=== PATIENT | male | born 1965 | race Caucasian/White ===

== ENCOUNTER 2016-10-02 06:18 | Observation (INO) | payer SELFPAY ==
[~2016-10-02] VITALS: Ht 177.8 cm; Wt 85.0 kg
[2016-10-02] VITALS (7 sets, daily range): BP systolic 122–154; BP diastolic 73–105; PULSE 61–104; RESP 15–24; TEMP 97.9–99.4; O2SAT 95–100
[~2016-10-02 06:18] MED LIST: CIPR500T2 PO; METR-1 PO; Z.0.NO CURRENT MEDS
[2016-10-02] MEDS ORDERED: XANA2TAB2 PO (06:27)
[2016-10-02] MEDS ORDERED: NITROGLYCERIN 2% OINT 1 GM PACKET TOP ONE (06:45)
[2016-10-02] MEDS ORDERED: ASPIRIN 81 MG CHEW TAB PO ONE (06:45)
[2016-10-02] MEDS ORDERED: NITROGLYCERIN 0.4 MG SL 25 TABS/BTL SL ONE (06:45)
[2016-10-02] MEDS ORDERED: SODIUM CHLORIDE 0.9% FLUSH 10 ML FLUSH IVF PRN (06:45)
[2016-10-02] MEDS ORDERED: LORazepam 2 MG/ML VIAL IV PUSH ONE ×2 (07:00→08:30)
[2016-10-02] MEDS ORDERED: SODIUM CHLOR 0.9% 1000 ML INJ 1,000 ML IV ONE ×2 (07:00→08:30)
--- NOTE | 2016-10-02 07:03 | PD ---
HPI Chief Complaint: Chest Pain Time Seen by Provider: 06:27 Travel History International Travel<30 days: No Contact w/Intl Traveler<30days: No Traveled to known affect area: No History of Present Illness HPI The patient is a 51 year old male who presents to the [facility] emergency department with a history of chest tightness that he reports began around 3:30 AM this morning. The patient reports that he has not been able to sleep for the last 5 days, however he did replace fall asleep for 10 minutes and awoke with this chest pain that he describes as a tightness, palpitations, diaphoresis , and shortness of breath. He reports that the chest pain continued and therefore he decided to come to the emergency department. His history, located by running out of his Xanax 5 days ago. He reports that he was previously seeing Dr. Blul, however he was discharged from Dr. Bull practice reportedly because he does not have insurance. The patient reports that he has been on Xanax 2 mg by mouth 3 times a day for the last 6 years related to tremor , anxiety, and posttraumatic stress disorder. The patient arrives anxious, tremulous. He denies ever being off of this medication for any extended period time previously. He reports being nauseated, however he has not vomited. He denies having any diarrhea. He reports that he last moved his bowels 2-3 days ago. He reports that he has not been able to eat related to his withdrawal symptoms. The patient denies any recent fevers, cough, congestion, neck pain, abdominal pain, urinary symptoms, or other neurologic symptoms. [facility] Past Medical History Narrative Medical The patient's past medical history is significant for tremors, anxiety disorder , history of posttraumatic stress disorder. The patient has had an episode of diverticulitis in the past. 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 Surgical History: No Previous Surgery Other Surgery: Yes (ANAL TUMOR REMOVED CHILD.) Social History Alcohol Use: Yes (1-2 times per week) Tobacco Use: No Substance Use: No Allergies-Medications (Allergen,Severity, Reaction): Coded Allergies: No Known Allergies (Verified , 10/02/16) Reported Meds & Prescriptions Reported Meds & Active Scripts Active Flagyl (Metronidazole) 500 Mg Tab 500 Mg PO TID Ciprofloxacin Hcl 500 Mg Tab 500 Mg PO BID Reported Xanax (Alprazolam) 2 Mg Tab 2 Mg PO Q8H PRN No Current Meds (Miscellaneous Medication) [facility] Review of Systems Except as stated in HPI: all other systems reviewed are Neg General / Constitutional: No: Fever Eyes: No: Visual changes HENT: No: Headaches Cardiovascular: Positive: Chest Pain or Discomfort, Dyspnea on exertion Respiratory: Positive: Shortness of Breath Gastrointestinal: Positive: Nausea, Constipation, Changes in Bowel Habits, No : Vomiting, Diarrhea, Abdominal Pain, Hematemesis, Loss of Appetite Genitourinary: No: Dysuria Musculoskeletal: No: Pain Skin: No Rash Neurologic: No: Weakness Psychiatric: No: Depression Endocrine: No: Polydipsia Hematologic/Lymphatic: No: Easy Bruising Physical Exam Narrative General: The patient is a well-developed well-nourished male, anxious appearing on arrival, tremulous on examination, eyes are darting around the room, pressure speech noted. Head and Neck exam: Head is normocephalic atraumatic. Eyes: EOMI, pupils are equal round and reactive to light. Nose: Midline septum with pink mucous membranes Mouth: Dentition unremarkable. Moist mucus membranes. Posterior oropharynx is not erythematous. No tonsillar hypertrophy. Uvula midline. Airway patent. Neck: No palpable lymphadenopathy. No nuchal rigidity. No thyromegaly. Cardiovascular: Regular rate and rhythm without murmurs, gallops, or rubs. Lungs: Clear to auscultation bilaterally. No wheezes, rhonchi, or rales. Abdomen: Soft, without tenderness to palpation in all 4 quadrants of the abdomen. No guarding, rebound, or rigidity. Normal bowel sounds are audible. No tenderness on palpation of McBurney's point. Extremities: No clubbing, cyanosis, or edema. 2+ pulses in all 4 extremities. No calf tenderness on palpation. Back: No costovertebral angle tenderness to palpation. Neurologic Exam: Cranial nerves 2-12 were intact on exam. Strength is 5/5 in all 4 extremities. No sensory deficits noted. Tremulous on examination. No asterixis. Skin Exam: No rash noted. Intact skin that is warm and dry. Data Data Last Documented VS Vital Signs Date Time Temp Pulse Resp B/P Pulse Ox O2 Delivery O2 Flow Rate FiO2 10/02/16 06:19 97.9 104 20 154/105 100 Orders Electrocardiogram (10/02/16 06:45) B-Type Natriuretic Peptide (10/02/16 06:45) Ckmb (Isoenzyme) Profile (10/02/16 06:45) Complete Blood Count With Diff (10/02/16 06:45) Comprehensive Metabolic Panel (10/02/16 06:45) D-Dimer (10/02/16 06:45) Magnesium (Mg) (10/02/16 06:45) Prothrombin Time / Inr (Pt) (10/02/16 06:45) Act Partial Throm Time (Ptt) (10/02/16 06:45) Troponin I (10/02/16 06:45) Lipase (10/02/16 06:45) Chest, Single Ap (10/02/16 06:45) Ecg Monitoring (10/02/16 06:45) Bilateral Bp Monitoring (10/02/16 06:45) Iv Access Insert/Monitor (10/02/16 06:45) Oximetry (10/02/16 06:45) Oxygen Administration (10/02/16 06:45) Aspirin Chew (Aspirin Chew) (10/02/16 06:45) Nitroglycerin 2% Oint (Nitroglycerin 2% (10/02/16 06:45) Sodium Chloride 0.9% Flush (Ns Flush) (10/02/16 06:45) Nitroglycerin Sl (Nitrostat Sl) (10/02/16 06:45) Drug Screen, Random Urine (10/02/16 06:49) Alcohol (Ethanol) (10/02/16 06:49) Sodium Chlor 0.9% 1000 Ml Inj (Ns 1000 M (10/02/16 07:00) Lorazepam Inj (Ativan Inj) (10/02/16 07:00) MDM Medical Decision Making Medical Screen Exam Complete: Yes Emergency Medical Condition: Yes Medical Record Reviewed: Yes Differential Diagnosis Acute coronary syndrome related to Xanax withdrawal, versus benzodiazepine withdrawal syndrome, versus anxiety disorder Narrative Course During the course of the patients emergency department visit, the patients history, examination, and differential diagnosis were reviewed with the patient. The patient had IV access obtained and blood work sent for analysis. The patient was placed on a awake overnight monitor with oximetry and blood pressure monitoring. An EKG was ordered. The patient was initially provided the patient was given normal saline 1 L IV fluid bolus, Ativan 1 mg IV. The patient will be given aspirin 160 mg by mouth 1, nitroglycerin sublingual 1, nitroglycerin 1 inch the chest wall. The patients laboratory studies and radiologic studies are pending. The patient's case will be checked out to the oncoming emergency physician to disposition based on the conclusion of the patient's workup. Diagnosis Primary Impression: Chest pain, rule out acute myocardial infarction Additional Impression: Benzodiazepine withdrawal Qualified Code: F13.239 - Benzodiazepine withdrawal, with unspecified complication Yari Saenz MD Oct 02, 2016 07:03
--- NOTE | 2016-10-02 07:34 | PD ---
Data Data Last Documented VS Vital Signs Date Time Temp Pulse Resp B/P Pulse Ox O2 Delivery O2 Flow Rate FiO2 10/02/16 09:37 97 Nasal Cannula 2 10/02/16 09:03 18 10/02/16 08:49 71 126/84 10/02/16 06:19 97.9 Orders Electrocardiogram (10/02/16 06:45) B-Type Natriuretic Peptide (10/02/16 06:45) Ckmb (Isoenzyme) Profile (10/02/16 06:45) Complete Blood Count With Diff (10/02/16 06:45) Comprehensive Metabolic Panel (10/02/16 06:45) D-Dimer (10/02/16 06:45) Magnesium (Mg) (10/02/16 06:45) Prothrombin Time / Inr (Pt) (10/02/16 06:45) Act Partial Throm Time (Ptt) (10/02/16 06:45) Troponin I (10/02/16 06:45) Lipase (10/02/16 06:45) Chest, Single Ap (10/02/16 06:45) Ecg Monitoring (10/02/16 06:45) Bilateral Bp Monitoring (10/02/16 06:45) Iv Access Insert/Monitor (10/02/16 06:45) Oximetry (10/02/16 06:45) Oxygen Administration (10/02/16 06:45) Aspirin Chew (Aspirin Chew) (10/02/16 06:45) Nitroglycerin 2% Oint (Nitroglycerin 2% (10/02/16 06:45) Sodium Chloride 0.9% Flush (Ns Flush) (10/02/16 06:45) Nitroglycerin Sl (Nitrostat Sl) (10/02/16 06:45) Drug Screen, Random Urine (10/02/16 06:49) Sodium Chlor 0.9% 1000 Ml Inj (Ns 1000 M (10/02/16 07:00) Lorazepam Inj (Ativan Inj) (10/02/16 07:00) Alcohol (Ethanol) (10/02/16 07:09) CKMB (10/02/16 07:09) CKMB% (10/02/16 07:09) Lactic Acid (10/02/16 08:01) Lorazepam Inj (Ativan Inj) (10/02/16 08:30) Sodium Chlor 0.9% 1000 Ml Inj (Ns 1000 M (10/02/16 08:30) Lactic Acid (10/02/16 09:24) Troponin I (10/02/16 09:24) Diet Heart Healthy (10/02/16 Lunch) Vital Signs (Adult) [id number] (10/02/16 11:08) Troponin I (10/02/16 16:00) Admit Order (Ed Use Only) (10/02/16 ) Labs Laboratory Tests Test 10/02/16 10/02/16 07:09 10:18 White Blood Count 11.9 TH/MM3 Red Blood Count 5.14 MIL/MM3 Hemoglobin 16.6 GM/DL Hematocrit 47.0 % Mean Corpuscular Volume 91.4 FL Mean Corpuscular Hemoglobin 32.3 PG Mean Corpuscular Hemoglobin 35.4 % Concent Red Cell Distribution Width 13.0 % Platelet Count 285 TH/MM3 Mean Platelet Volume 8.0 FL Neutrophils (%) (Auto) 81.4 % Lymphocytes (%) (Auto) 12.1 % Monocytes (%) (Auto) 5.5 % Eosinophils (%) (Auto) 0.2 % Basophils (%) (Auto) 0.8 % Neutrophils # (Auto) 9.7 TH/MM3 Lymphocytes # (Auto) 1.4 TH/MM3 Monocytes # (Auto) 0.7 TH/MM3 Eosinophils # (Auto) 0.0 TH/MM3 Basophils # (Auto) 0.1 TH/MM3 CBC Comment DIFF FINAL Differential Comment Prothrombin Time 11.3 SEC Prothromb Time International 1.0 RATIO Ratio Activated Partial 22.5 SEC Thromboplast Time D-Dimer Quantitative (PE/DVT) 0.20 MG/L FEU Sodium Level 141 MEQ/L Potassium Level 3.9 MEQ/L Chloride Level 105 MEQ/L Carbon Dioxide Level 21.8 MEQ/L Anion Gap 14 MEQ/L Blood Urea Nitrogen 8 MG/DL Creatinine 1.28 MG/DL Estimat Glomerular Filtration 59 ML/MIN Rate Random Glucose 138 MG/DL Lactic Acid Level 4.9 mmol/L 1.7 mmol/L Calcium Level 9.5 MG/DL Magnesium Level 1.9 MG/DL Total Bilirubin 1.9 MG/DL Aspartate Amino Transf 62 U/L (AST/SGOT) Alanine Aminotransferase 42 U/L (ALT/SGPT) Alkaline Phosphatase 73 U/L Total Creatine Kinase 879 U/L Creatine Kinase MB 1.1 NG/ML Creatine Kinase MB % 0.1 % Troponin I LESS THAN 0.02 LESS THAN 0.02 NG/ML NG/ML B-Type Natriuretic Peptide 37 PG/ML Total Protein 8.4 GM/DL Albumin 4.7 GM/DL Lipase 86 U/L Ethyl Alcohol Level LESS THAN 3 MG/DL MDM Supervised Visit with MARLENE: No Interpretation(s) EKG shows sinus rhythm with a normal axis and normal R-wave progression. Possible LVH. No concerning ST segment changes. Intervals within normal limits. This borderline EKG. Narrative Course Patient care assumed from Dr. Saenz at 07 , this is a 51-year-old male presented to the emergency department with withdrawals from Xanax for the past day and a half. According to the patient he usually takes 2 mg of Xanax 3 times a day and was suddenly cut off 5 days ago. Patient certainly is tremulous on arrival but has no delirium and no fever. He stated that he then started having some chest pain left side of his chest which was accompanied with some shortness of breath. Patient's initial EKG and troponin were negative , his lactic acid is elevated to 4.9, the patient was given a total of 2 L of fluid in the emergency department had a milligram of Ativan prior to initiation of my care and I ordered an additional milligram of Ativan for him. His second lactic acid is less than 2, second troponin is negative. Patient was discussed with Dr. Edwards for observation for chest pain and benzodiazepine withdrawal. Diagnosis Primary Impression: Chest pain, rule out acute myocardial infarction Additional Impression: Benzodiazepine withdrawal Qualified Code: F13.239 - Benzodiazepine withdrawal, with unspecified complication Admitting Information Admitting Physician Requests: Observation Condition: Stable Jelani Rivera MD Oct 02, 2016 07:34
[2016-10-02 07:36] LABS: AUTOMATED NEUTROPHIL # 9.7 TH/MM3 (1.8-7.7); BASOPHIL # 0.1 TH/MM3 (0-0.2); BASOPHIL % 0.8 % (0.0-2.0); EOSINOPHIL % 0.2 % (0.0-4.0); HEMO FLAGS DIFF FINAL; LYMPH % 12.1 % (9.0-44.0); LYMPHOCYTE # 1.4 TH/MM3 (1.0-4.8); MEAN CELL VOLUME 91.4 FL (80.0-100.0); MEAN CORPUSCULAR HEMOGLOBIN 32.3 PG (27.0-34.0); MEAN CORPUSCULAR HGB CONC 35.4 % (32.0-36.0); MONO % 5.5 % (0.0-8.0); NEUT % 81.4 % (16.0-70.0); PLATELET COUNT 285 TH/MM3 (150-450); RED BLOOD COUNT 5.14 MIL/MM3 (4.50-5.90); WHITE BLOOD COUNT 11.9 TH/MM3 (4.0-11.0)
--- NOTE | 2016-10-02 07:38 | RADRPT ---
EXAM DATE/TIME: 10/02/2016 07:30 [place] COMPARISON: No previous studies available for comparison. INDICATIONS : Chest pain. MEDICAL HISTORY : None. SURGICAL HISTORY : None. ENCOUNTER: Initial ACUITY: 1 day PAIN SCORE: 9/10 LOCATION: Bilateral chest FINDINGS: A single view of the chest demonstrates the lungs to be symmetrically aerated without evidence of mas s, infiltrate or effusion. The cardiomediastinal contours are unremarkable. Osseous structures are intact. CONCLUSION: 1. No acute cardiopulmonary disease. Dane Monsalve MD on October 02, 2016 at 7:34 Board Certified Radiologist. This report was verified electronically.
[2016-10-02 07:50] LABS: APTT (PATIENT) 22.5 SEC (24.3-30.1); PROTHROMBIN TIME - PATIENT 11.3 SEC (9.8-11.6)
[2016-10-02 07:53] LABS: ALKALINE PHOSPHATASE 73 U/L (45-117); CREATINE KINASE 879 U/L (39-308); TOTAL BILIRUBIN ADULT 1.9 MG/DL (0.2-1.0)
[2016-10-02 08:07] LABS: ALT (GPT) 42 U/L (12-78); ANION GAP 14 MEQ/L (5-15); AST (GOT) 62 U/L (15-37); BICARBONATE 21.8 MEQ/L (21.0-32.0); BLOOD UREA NITROGEN 8 MG/DL (7-18); CHLORIDE 105 MEQ/L (98-107); CKMB 1.1 NG/ML (0.5-3.6); GLOMERULAR FILTRATION RATE 59 ML/MIN (>89); MAGNESIUM 1.9 MG/DL (1.5-2.5); POTASSIUM 3.9 MEQ/L (3.5-5.1); SODIUM (NA) 141 MEQ/L (136-145)
[2016-10-02] MEDS ORDERED: ALPRAZolam 1 MG TAB PO PRN (11:45)
--- NOTE | 2016-10-02 11:57 | HHI.HP ---
[facility] Service [facility] ([place], [place])ists Primary Care Physician No Primary Care Physician Admission Diagnosis Chest pain, Moderate Benzodiazepine withdrawal. Diagnoses: (1) Benzodiazepine withdrawal Diagnosis: Principal (2) Chest pain Diagnosis: Principal Chief Complaint: ' I'm shaking'. Travel History International Travel<30 Days: No Contact w/Intl Traveler <30 Da: No Traveled to Known Affected Are: No History of Present Illness patient is a 51 y/o male with history of anxiety and tremors who's been on Xanax for the past five years presented to ER with chest pain, tremors and feeling anxious. he says that he stopped taking his Xanax five days ago. he says that he ran out of his medication but he also wanted to quit taking it. since then he's been having worsening tremors,anxiety and chest pain. the chest pain localized to mid chest with no radiation. he had some sob but with no nausea or vomiting. after he received a couple of dose of Ativan in ER he felt slightly better although still with some tremors and anxiety. he says that ' he didn't this would happen when he stopped taking his xanax'. Review of Systems Constitutional: DENIES: Fever, Weight loss, Chills, Night Sweats Eyes: DENIES: Blurred vision, Diplopia, Vision loss, Double Vision Ears, nose, mouth, throat: DENIES: Tinnitus, Vertigo, Throat pain, Epistaxis Respiratory: COMPLAINS OF: Shortness of breath, DENIES: Apneas, Cough, Snoring , Wheezing, Hemoptysis, Sputum production Cardiovascular: COMPLAINS OF: Chest pain, DENIES: Palpitations, Syncope, Dyspnea on Exertion, PND, Lower Extremity Edema, Orthopnea, Claudication Gastrointestinal: DENIES: Abdominal pain, Black stools, Bloody stools, Constipation, Diarrhea, Nausea, Vomiting, Difficulty Swallowing, Anorexia Genitourinary: DENIES: Urinary frequency, Urgency, Hematuria, Dysuria Musculoskeletal: DENIES: Joint pain, Muscle aches, Stiffness, Joint Swelling Integumentary: DENIES: Rash Neurologic: COMPLAINS OF: Tremor, DENIES: Abnormal gait, Headache, Localized weakness, Paresthesias, Seizures, Speech Problems, Poor Balance Psychiatric: COMPLAINS OF: Anxiety, Agitation, DENIES: Confusion, Mood changes , Depression, Hallucinations, Suicidal Ideation, Homicidal Ideation, Delusions Past Family Social History Past Medical History anxiety Past Surgical History none reported. Reported Medications Xanax Allergies: Coded Allergies: No Known Allergies (Verified , 10/02/16) Active Ordered Medications Current Medications Aspirin (Aspirin Chew) 162 mg ONCE ONCE PO Last administered on 10/02/16 07: 49; Start 10/02/16 at 06:45; Stop 10/02/16 at 06:47; Status DC Nitroglycerin (Nitroglycerin 2% Oint) 1 inch ONCE ONCE TOP Last administered on 10/02/16 07:49; Start 10/02/16 at 06:45; Stop 10/02/16 at 06:47; Status DC Sodium Chloride (NS Flush) 2 ml UNSCH PRN IVF FLUSH AFTER USING IV ACCESS Last administered on 10/02/16 07:50; Start 10/02/16 at 06:45 Nitroglycerin 0.4 mg 0.4 mg ONCE ONCE SL Last administered on 10/02/16 08:58 ; Start 10/02/16 at 06:45; Stop 10/02/16 at 06:47; Status DC Sodium Chloride (NS 1000 ml Inj) 1,000 ml @ 1,000 mls/hr Q1H ONCE IV Last administered on 10/02/16 07:50; Start 10/02/16 at 07:00; Stop 10/02/16 at 07:59 ; Status DC Lorazepam (Ativan Inj) 1 mg ONCE ONCE IV PUSH Last administered on 10/02/16 07:50; Start 10/02/16 at 07:00; Stop 10/02/16 at 07:01; Status DC Lorazepam 1 mg 1 mg ONCE ONCE IV PUSH Last administered on 10/02/16 08:58; Start 10/02/16 at 08:30; Stop 10/02/16 at 08:34; Status DC Sodium Chloride (NS 1000 ml Inj) 1,000 ml @ 999 mls/hr BOLUS ONCE IV Last administered on 10/02/16 08:58; Start 10/02/16 at 08:30; Stop 10/02/16 at 09:30 ; Status DC Family History CAD in parents. Social History quit smoking a month ago. drinks twice weekly- no illicit drug abuse. Physical Exam Vital Signs Vital Signs Date Time Temp Pulse Resp B/P Pulse Ox O2 Delivery O2 Flow Rate FiO2 10/02/16 09:37 97 Nasal Cannula 2 10/02/16 09:03 18 10/02/16 08:49 71 24 126/84 97 Nasal Cannula 2 10/02/16 08:49 68 24 97 Nasal Cannula 2 10/02/16 06:19 97.9 104 20 154/105 100 Physical Exam GENERAL: looks somewhat anxious but in no acute distress. SKIN: No rashes, ecchymoses or lesions. Cool and dry. HEAD: Atraumatic. Normocephalic. No temporal or scalp tenderness. EYES: Pupils equal round and reactive. Extraocular motions intact. No scleral icterus. No injection or drainage. ENT: Nose without bleeding, purulent drainage or septal hematoma. Throat without erythema, tonsillar hypertrophy or exudate. Uvula midline. Airway patent. NECK: Trachea midline. No JVD or lymphadenopathy. Supple, nontender, no meningeal signs. CARDIOVASCULAR: Regular rate and rhythm without murmurs, gallops, or rubs. - chest is tender to touch. RESPIRATORY: Clear to auscultation. Breath sounds equal bilaterally. No wheezes , rales, or rhonchi. GASTROINTESTINAL: Abdomen soft, non-tender, nondistended. No hepato-splenomegaly , or palpable masses. No guarding. MUSCULOSKELETAL: Extremities without clubbing, cyanosis, or edema. No joint tenderness, effusion, or edema noted. No calf tenderness. Negative Homans sign bilaterally. NEUROLOGICAL: Awake and alert. Cranial nerves II through XII intact. Motor and sensory grossly within normal limits. Five out of 5 muscle strength in all muscle groups. Normal speech. Laboratory Laboratory Tests Test 10/02/16 10/02/16 07:09 10:18 White Blood Count 11.9 Red Blood Count 5.14 Hemoglobin 16.6 Hematocrit 47.0 Mean Corpuscular Volume 91.4 Mean Corpuscular Hemoglobin 32.3 Mean Corpuscular Hemoglobin 35.4 Concent Red Cell Distribution Width 13.0 Platelet Count 285 Mean Platelet Volume 8.0 Neutrophils (%) (Auto) 81.4 Lymphocytes (%) (Auto) 12.1 Monocytes (%) (Auto) 5.5 Eosinophils (%) (Auto) 0.2 Basophils (%) (Auto) 0.8 Neutrophils # (Auto) 9.7 Lymphocytes # (Auto) 1.4 Monocytes # (Auto) 0.7 Eosinophils # (Auto) 0.0 Basophils # (Auto) 0.1 CBC Comment DIFF FINAL Differential Comment Prothrombin Time 11.3 Prothromb Time International 1.0 Ratio Activated Partial 22.5 Thromboplast Time D-Dimer Quantitative (PE/DVT) 0.20 Sodium Level 141 Potassium Level 3.9 Chloride Level 105 Carbon Dioxide Level 21.8 Anion Gap 14 Blood Urea Nitrogen 8 Creatinine 1.28 Estimat Glomerular Filtration 59 Rate Random Glucose 138 Lactic Acid Level 4.9 1.7 Calcium Level 9.5 Magnesium Level 1.9 Total Bilirubin 1.9 Aspartate Amino Transf 62 (AST/SGOT) Alanine Aminotransferase 42 (ALT/SGPT) Alkaline Phosphatase 73 Total Creatine Kinase 879 Creatine Kinase MB 1.1 Creatine Kinase MB % 0.1 Troponin I LESS THAN 0.02 LESS THAN 0.02 B-Type Natriuretic Peptide 37 Total Protein 8.4 Albumin 4.7 Lipase 86 Ethyl Alcohol Level LESS THAN 3 Result Diagram: 10/02/16 0709 10/02/1609 Imaging Last Impressions Chest X-Ray 10/02/16 0645 Signed Impressions: Service Date/Time: Sunday, October 02, 2016 07:30 - CONCLUSION: 1. No acute cardiopulmonary disease. Dane Monsalve MD EKG; sinus rhythm with no acute ST-T changes Assessment and Plan Assessment and Plan A/P - benzodiazepine withdrawal received IV Ativan in ER- will resume his home dose Xanax and keep on Ativan prn- continue to monitor -chest pain- likely due to benzo withdrawal/ anxiety received a dose of aspirin in ER- first EKG and troponin negative- will repeat the cardiac enzymes- -mild rhabdomyolysis- start IV fluid and repeat CPK in am -DVT prophylaxis with SCD's Discussed Condition With ER physician and the patient. Problem Qualifiers (1) Benzodiazepine withdrawal: Qualified Code: F13.239 - Benzodiazepine withdrawal, with unspecified complication (2) Chest pain: Qualified Code: R07.9 - Chest pain, unspecified type Linda Zuniga MD Oct 02, 2016 11:57
[2016-10-02] MEDS ORDERED: ACETAMINOPHEN 325 MG TAB PO PRN (12:00)
[2016-10-02] MEDS ORDERED: ONDANSETRON HCL 4 MG/2 ML VIAL IV PUSH PRN (12:00)
[2016-10-02] MEDS: SODIUM CHLOR 0.9% 1000 ML INJ 1,000 ML IV SCH ×2 (12:38→21:19)
[2016-10-02] MEDS: ALPRAZolam 1 MG TAB PO SCH ×2 (12:39→21:19)
[2016-10-02] MEDS ORDERED: LORazepam 2 MG/ML VIAL IV PUSH PRN (14:45)
[2016-10-02 16:33] LABS: AMPHETAMINE, URINE NEG (NEG); BARBITURATES, URINE NEG (NEG); COCAINE, URINE NEG (NEG)
--- NOTE | 2016-10-02 23:00 | EKG ---
Date Performed: 10/02/2016 Time Performed: 07:04:47 PTAGE: 51 years EKG: Sinus rhythm MODERATE VOLTAGE CRITERIA FOR LVH, CONSIDER NORMAL VARIANT BORDERLINE ECG NO PREVIOUS TRACING DOCTOR: Priscilla Borges Interpretating Date/Time 10/02/2016 22:58:38
[2016-10-03] VITALS: BP 137/84; PULSE 70; RESP 20; TEMP 98.8; O2SAT 98
[2016-10-03 04:00] VITALS: BP 146/69; PULSE 62; RESP 20; TEMP 98.1; O2SAT 96
[2016-10-03] MEDS: ALPRAZolam 1 MG TAB PO SCH ×2 (04:50→11:53)
[2016-10-03 07:57] VITALS: BP 114/80; PULSE 56; RESP 14; TEMP 98.8; O2SAT 95
[2016-10-03 08:40] LABS: ALKALINE PHOSPHATASE 54 U/L (45-117); ALT (GPT) 26 U/L (12-78); ANION GAP 8 MEQ/L (5-15); AST (GOT) 30 U/L (15-37); BICARBONATE 23.3 MEQ/L (21.0-32.0); BLOOD UREA NITROGEN 12 MG/DL (7-18); CHLORIDE 107 MEQ/L (98-107); CREATINE KINASE 326 U/L (39-308); GLOMERULAR FILTRATION RATE 96 ML/MIN (>89); POTASSIUM 3.6 MEQ/L (3.5-5.1); SODIUM (NA) 138 MEQ/L (136-145); TOTAL BILIRUBIN ADULT 1.6 MG/DL (0.2-1.0)
[2016-10-03 09:09] LABS: CKMB 1.3 NG/ML (0.5-3.6)
[2016-10-03 09:32] LABS: AUTOMATED NEUTROPHIL # 7.1 TH/MM3 (1.8-7.7); BASOPHIL % 0.4 % (0.0-2.0); EOSINOPHIL # 0.1 TH/MM3 (0-0.4); EOSINOPHIL % 1.1 % (0.0-4.0); HEMATOCRIT 40.5 % (39.0-51.0); HEMO FLAGS DIFF FINAL; LYMPH % 18.8 % (9.0-44.0); LYMPHOCYTE # 1.8 TH/MM3 (1.0-4.8); MEAN CELL VOLUME 93.7 FL (80.0-100.0); MEAN CORPUSCULAR HEMOGLOBIN 31.8 PG (27.0-34.0); MEAN CORPUSCULAR HGB CONC 33.9 % (32.0-36.0); MONO % 6.8 % (0.0-8.0); NEUT % 72.9 % (16.0-70.0); PLATELET COUNT 191 TH/MM3 (150-450); RED BLOOD COUNT 4.33 MIL/MM3 (4.50-5.90); RED CELL DISTRIBUTION WIDTH 13.1 % (11.6-17.2); WHITE BLOOD COUNT 9.8 TH/MM3 (4.0-11.0)
[2016-10-03 11:20] VITALS: BP 113/72; PULSE 69; RESP 18; TEMP 98.7; O2SAT 96
[2016-10-03] MEDS: SODIUM CHLOR 0.9% 1000 ML INJ 1,000 ML IV SCH (11:54)
[2016-10-03] MEDS ORDERED: REGADENOSON INJ 0.4 MG/5 ML SYR ONE (13:46)
--- NOTE | 2016-10-03 15:04 | HHI.PR ---
Subjective Remarks Follow up for chest pain and benzodiazepine withdrawal. The patient is seen in nuclear medicine after completing stress test. He denies any further episodes of chest pain. Denies any shortness of breath or palpitations. He has been able to tolerate breakfast this morning, denies any nausea/vomiting/diarrhea. He states he has tremors and anxiety at baseline and has been on Xanax 2mg tid for 6 years for this. He states he was seeing PCP Dr. Bull however he lost insurance so she dropped him from her service. He states he has called to get established with new PCP Dr. Cordova however he does not have any new patient openings for another 6 weeks. The patient states he doesn't want to cut back on Xanax at this time because he doesn't want to go through withdrawal again. Currently he feels much better after receiving IV ativan and starting back on his Xanax. Explained to him we would only be able to provide short course of Xanax but he will need to find PCP/psychiatry follow up perla. Objective Vitals Vital Signs Date Time Temp Pulse Resp B/P Pulse Ox O2 Delivery O2 Flow Rate FiO2 10/03/16 11:20 98.7 69 18 113/72 96 10/03/16 07:57 98.8 56 14 114/80 95 10/03/16 04:00 98.1 62 20 146/69 96 10/03/16 00:00 98.8 70 20 137/84 98 10/02/16 21:17 99.0 68 20 122/80 98 10/02/16 15:17 99.0 80 16 153/98 97 I/O 10/02/16 10/02/16 10/02/16 10/03/16 10/03/16 10/03/16 07:00 15:00 23:00 07:00 15:00 23:00 Intake Total 220 ml 800 ml Output Total 550 ml 450 ml Balance -330 ml 350 ml Intake Oral 220 ml IV Total 800 ml Output Urine Total 550 ml 450 ml # Voids 1 # Bowel Movements 1 Result Diagram: 10/03/16 0625 10/03/16 0625 Imaging Last Impressions Myocardial Perfusion Scan Nuc Med 10/03/16 0000 Signed Impressions: Service Date/Time: September 13:10 - CONCLUSION: Small size, mild severity periapical perfusion abnormality. No ischemia. RISK CATEGORY: Low (<1%% Annual Mortality Rate) Miguel Cedeño MD Chest X-Ray 10/02/16 0645 Signed Impressions: Service Date/Time: Sunday, October 02, 2016 07:30 - CONCLUSION: 1. No acute cardiopulmonary disease. Dane Monsalve MD Objective Remarks GENERAL: Well-nourished, well-developed middle aged male patient in [facility]. SKIN: Warm and dry. No rash. HEENT: Normocephalic. Atraumatic.Pupils equal and round. Mucous membranes pink and moist. NECK: Supple. Trachea midline. CARDIOVASCULAR: Regular rate and rhythm. S1, S2 noted. No murmur appreciated. RESPIRATORY: No accessory muscle use. Clear to auscultation. Breath sounds equal bilaterally. GASTROINTESTINAL: Abdomen soft, non-tender, nondistended. Normoactive bowel sounds x4. MUSCULOSKELETAL: No obvious deformities. Extremities without clubbing, cyanosis , or edema. NEUROLOGICAL: Awake and alert. No obvious cranial nerve deficits. Motor grossly within normal limits. Normal speech. PSYCHIATRIC: Appropriate mood and affect; insight and judgment normal. Medications and IVs Current Medications Medications (Trade) Dose Ordered Sig/Miranda Route Start Time Stop Time Status Last Admin Sodium Chloride 2 ml 2 ml UNSCH PRN IVF 10/02/16 06:45 10/02/16 07:50 (NS 1000 ml Inj) 1,000 ml @ 100 mls/hr Q10H IV 10/02/16 12:00 10/03/16 11:54 (Zofran Inj) 4 mg Q8HR PRN IV PUSH 10/02/16 12:00 (Tylenol) 650 mg Q4H PRN PO 10/02/16 12:00 (Xanax) 2 mg Q8H PO 10/02/16 12:00 10/03/16 11:53 (Ativan Inj) 1 mg Q4H PRN IV PUSH 10/02/16 14:45 A/P Problem List: (1) Benzodiazepine withdrawal ICD Code: F13.239 Status: Acute (2) Chest pain ICD Code: R07.9 Status: Acute Assessment and Plan 51-year-old male with history of anxiety and tremors on Xanax for 6+ years, presents to the ER with points of chest pain, tremors, severe anxiety after he ran out of his Xanax five days ago. Benzodiazepine withdrawal: Patient has been on Xanax 2 mg tid for many years, however lost insurance, therefore has not been able to follow-up with his PCP Dr. Bull. S/p IV Ativan in the ER with moderate improvement. Restarted patient's Xanax 2mg tid. Patient much improved today. Will need prescription for Xanax at discharge. Chest Pain: strongly suspect secondary to anxiety and benzo withdrawal. ACS ruled out with negative serial cardiac enzymes x3 and EKG without acute ischemic changes. Nuclear Stress Test shows small size mild severity periapical perfusion abnormality; no ischemia; low risk. Continue aspirin. Lactic Acidosis: Lactate initially 4.9, suspect secondary to benzo withdrawal with nausea/vomiting. Given IVF boluses, repeat lactate 1.7. Resolved. Mild Rhabdomyolysis: CPK 879, given IVF, repeat CPK 326. Improved. DVT Prophylaxis: SCDs Discharge Planning Discharge patient to home Condition on discharge: Improved Heart Healthy Diet as tolerated Ad Barbara activity Rx written: Aspirin 81mg daily, Xanax 2mg tid Follow-up with primary care physician within 1 week Problem Qualifiers (1) Benzodiazepine withdrawal: Qualified Code: F13.239 - Benzodiazepine withdrawal, with unspecified complication (2) Chest pain: Qualified Code: R07.9 - Chest pain, unspecified type Araseli Lopez PA-C Oct 03, 2016 3:04 pm
--- NOTE | 2016-10-03 15:45 | RADRPT ---
EXAM DATE/TIME: 10/03/2016 13:10 [place] COMPARISON: No previous studies available for comparison. INDICATIONS : Mid chest pain. Angina. DOSE: 38.2 mCi Tc99m Myoview at stress. 8.1 mCi Tc99m Myoview at rest. 0.4 mg Lexiscan STRESS SYMPTOMS: None noted. EJECTION FRACTION: 50% MEDICAL HISTORY : Asthma. SURGICAL HISTORY : Anal tumor removed. ENCOUNTER: Initial ACUITY: 1 day PAIN SCALE: 2/10 LOCATION: Retrosternal chest TECHNIQUE: The patient underwent pharmacologic stress with infusion of prescribed dose. Continuous ECG tracing was monitored during stress. Gated SPECT imaging was performed after stress and conventional SPECT i maging was performed at rest. The examination was performed on a SPECT/CT scanner, both attenuation and non-corrected datasets were reviewed. FINDINGS: DISTRIBUTION: The maximum perfused segment at stress is in the lateral wall. PERFUSION STUDY: Small area of mildly diminished inferior apical perfusion without redistribution GATED STUDY: There is intact wall motion and thickening without hypokinetic or dyskinetic segments. CONCLUSION: Small size, mild severity periapical perfusion abnormality. No ischemia. RISK CATEGORY: Low (<1% Annual Mortality Rate) Miguel Cedeño MD on October 03, 2016 at 15:37 Board Certified Radiologist. This report was verified electronically.
[2016-10-03 16:16] VITALS: BP 115/79; PULSE 58; RESP 16; TEMP 98.5; O2SAT 97
[2016-10-03] MEDS ORDERED: ASPI-147 PO (16:24)
--- NOTE | 2016-10-03 16:24 | HHI.DCPOC ---
Discharge Care Plan Diagnosis: (1) Benzodiazepine withdrawal (2) Chest pain Goals to Promote Your Health * To prevent worsening of your condition and complications * To maintain your health at the optimal level Directions to Meet Your Goals Take your medications as prescribed Follow your dietary instruction Follow activity as directed Keep your appointments as scheduled Take your immunizations and boosters as scheduled If your symptoms worsen call your PCP, if no PCP go to Urgent Care Center or Emergency Room Smoking is Dangerous to Your Health. Avoid second hand smoke Call the 24-hour hour crisis hotline for domestic abuse at Araseli Lopez PA-C Oct 03, 2016 4:24 pm
[2016-10-03] MEDS ORDERED: XANA2TAB2 PO (16:41)
== END 2016-10-03 17:12 | disposition home or self-care (01) ==
LOC: NEPE 06:18 → NEDA 11:12 → NEPHCDU 12:18
PROVIDERS: ADMIT Hospitalist; ATTEND Hospitalist
DX: F13.239 Sedative, hypnotic or anxiolytic dependence with withdrawal, unspecified (principal); R07.9 Chest pain, unspecified; E87.2 Acidosis; F41.9 Anxiety disorder, unspecified; R06.02 Shortness of breath; R11.0 Nausea; M62.82 Rhabdomyolysis; I25.119 Atherosclerotic heart disease of native coronary artery with unspecified angina pectoris; F43.10 Post-traumatic stress disorder, unspecified; Z79.899 Other long term (current) drug therapy; Z79.82 Long term (current) use of aspirin; Z87.891 Personal history of nicotine dependence
CPT/HCPCS: 71010; 78452; 80053; 80307; 82550; 82552; 83605; 83690; 83735; 83880; 84484; 85025; 85379; 85610; 85730; 93005; 93017; 96361; 96374; 96376; 99285; A9502; G0378; J2060; J2785; J7030

== ENCOUNTER 2016-10-24 10:01 | Emergency (ER) | payer SELFPAY ==
[~2016-10-24 10:01] MED LIST changes: +ASPI-147 PO; -CIPR500T2 PO; -METR-1 PO; +XANA2TAB2 PO; -Z.0.NO CURRENT MEDS
[2016-10-24 10:03] VITALS: BP 160/102; PULSE 104; RESP 24; TEMP 98.1; O2SAT 100
--- NOTE | 2016-10-24 10:18 | PD ---
HPI . Xanax refill Chief Complaint: Medication Refill Request Time Seen by Provider: 10:15 Travel History International Travel<30 days: No Contact w/Intl Traveler<30days: No Traveled to known affect area: No History of Present Illness HPI 51-year-old male here requesting refills on Xanax. Patient takes 2 mg of Xanax 3 times a day. He says he was told to come here to the emergency department for refills. History Social History Alcohol Use: Yes (1-2 times per week) Tobacco Use: No Allergies-Medications (Allergen,Severity, Reaction): Coded Allergies: No Known Allergies (Verified , 10/02/16) Reported Meds & Prescriptions Reported Meds & Active Scripts Active Xanax (Alprazolam) 2 Mg Tab 2 Mg PO Q8H PRN Ecotrin Low Strength (Aspirin) 81 Mg Tabdr 81 Mg PO DAILY Reported Xanax (Alprazolam) 2 Mg Tab 2 Mg PO Q8H PRN Review of Systems General / Constitutional: No: Fever Eyes: No: Visual changes HENT: No: Headaches Cardiovascular: No: Chest Pain or Discomfort Respiratory: No: Shortness of Breath Gastrointestinal: No: Abdominal Pain Genitourinary: No: Dysuria Musculoskeletal: No: Pain Skin: No Rash Neurologic: No: Weakness Psychiatric: No: Depression Endocrine: No: Polydipsia Hematologic/Lymphatic: No: Easy Bruising Physical Exam Narrative GENERAL: AAO x 3, no acute distress, Well-nourished, well-developed patient. SKIN: Warm and dry. No visible rashes or bruising. HEAD: Normocephalic and atraumatic. EYES: No scleral icterus. No injection or drainage. EOM intact, PERRLA ENT: No nasal drainage noted. Mucous membranes pink. Airway patent. NECK: Supple, trachea midline. No JVD. CARDIOVASCULAR: Regular rate and rhythm without murmurs, gallops, or rubs. RESPIRATORY: Breath sounds equal bilaterally. No accessory muscle use. No rhonchi or rales. GASTROINTESTINAL: visual inspection normal EXTREMITIES: No cyanosis or edema. BACK: No obvious deformity. NEURO: CN II-12 intact, no tremors or signs of withdrawals PSYCH: AAO x 3, normal affect. Data Data Last Documented VS Vital Signs Date Time Temp Pulse Resp B/P Pulse Ox O2 Delivery O2 Flow Rate FiO2 7/20/17 10:03 98.1 104 24 160/102 100 Room Air MDM Medical Screen Exam Complete: Yes Emergency Medical Condition: No Differential Diagnosis benzo addiction, drug seeking behavior, medication refill Narrative Course A medical screening exam was performed: At the time of evaluation the presenting medical condition was determined not to be of an emergent nature. The patient was given the option of receiving additional care, but declined. Patient was given options for additional community resources from which to obtain care. The Patient Has Been advised to seek medical attention for their presenting complaint. The patient has been advised to return to the ER at any time if an emergent condition develops. I looked the patient up and EFORSCE: I recommend he follow with the previous doctors who were prescribing his medications. Primary Impression: Encounter for medical screening examination Condition: Stable Peggy Orlando Oct 24, 2016 10:17
[2016-10-30] MEDS ORDERED: tylenol pm (10:21)
[2016-10-30] MEDS ORDERED: BUSP10TA PO (10:39)
== END 2016-10-24 10:30 | disposition left against medical advice (07) ==
LOC: NEPK 10:01
DX: Z76.0 Encounter for issue of repeat prescription (principal)
CPT/HCPCS: 99281

== ENCOUNTER → 2016-11-14 | Outpatient (CLI) | payer OTHER ==
[~2016-11-14] MED LIST changes: +BUPR150T3 PO; +BUSP10TA PO; +LORA2TAB7 PO; -XANA2TAB2 PO; +tylenol pm
[2016-11-14 12:11] LABS: ANION GAP 8 MEQ/L (5-15); AST (GOT) 18 U/L (15-37); BICARBONATE 27.4 MEQ/L (21.0-32.0); BLOOD UREA NITROGEN 7 MG/DL (7-18); CHLORIDE 103 MEQ/L (98-107); GLOMERULAR FILTRATION RATE 66 ML/MIN (>89); GLUCOSE,FASTING 88 MG/DL (74-99); POTASSIUM 3.6 MEQ/L (3.5-5.1); SODIUM (NA) 138 MEQ/L (136-145)
[2016-11-14 12:12] LABS: ALT (GPT) 23 U/L (12-78)
[2016-11-14 12:22] LABS: ALKALINE PHOSPHATASE 78 U/L (45-117); HDL CHOLESTEROL 38.2 MG/DL (40.0-60.0); LDL CHOLESTEROL 94 MG/DL (0-99); TOTAL BILIRUBIN ADULT 0.7 MG/DL (0.2-1.0)
== END ==
LOC: CLAB 11:25
PROVIDERS: ATTEND Nurse Practitioner Family
DX: R03.0 Elevated blood-pressure reading, without diagnosis of hypertension (principal)
CPT/HCPCS: 36415; 80053; 80061; 84443